=== PATIENT | male | born 1985 | race African-American/Black ===

== ENCOUNTER 2019-09-25 08:14 | Emergency (ER) | payer SELFPAY ==
[~2019-09-25] VITALS: Ht 167.6 cm; Wt 82.1 kg
[2019-09-25 08:18] VITALS: BP 122/86; Ht 167.6 cm; Wt 82.1 kg
[2019-09-26 07:09] LABS: RAPID PLASMA REAGIN Non Reactive (Non Reactive)
== END 2019-09-25 09:36 | disposition home or self-care (01) ==
LOC: ED 08:14
PROVIDERS: Emergency Medicine
DX: A64 Unspecified sexually transmitted disease (principal); F17.210 Nicotine dependence, cigarettes, uncomplicated; F12.20 Cannabis dependence, uncomplicated
CPT/HCPCS: 87491; 87591; 99406; J0696

== ENCOUNTER 2019-10-13 16:58 | Emergency (ER) | payer SELFPAY ==
[~2019-10-13] VITALS: Ht 167.6 cm; Wt 83.2 kg
[2019-10-13 17:40] VITALS: BP 138/76; Ht 167.6 cm; Wt 83.2 kg
[2019-10-13 21:18] LABS: microscopic required? NO
[2019-10-13 21:30] LABS: UA SPECIFIC GRAVITY 1.025 (1.005-1.035); urine erythrocyte NEGATIVE (NEGATIVE)
== END 2019-10-13 20:30 | disposition home or self-care (01) ==
LOC: ED 16:58
PROVIDERS: Emergency Medicine
DX: A63.8 Other specified predominantly sexually transmitted diseases (principal); F17.210 Nicotine dependence, cigarettes, uncomplicated
CPT/HCPCS: 87491; 87591; 99406